=== PATIENT | female | born 1985 | race Caucasian/White ===

== ENCOUNTER 2020-05-10 17:43 | Outpatient (REF) | payer OTHER, SELFPAY | END 2020-05-10 17:44 | disposition home or self-care (01) | LOC: HO.LAB 17:43 | PROVIDERS: Visit Provider Internal Medicine | DX: Z20.828 Contact with and (suspected) exposure to other viral communicable diseases (principal) | CPT/HCPCS: U0003 ==

== ENCOUNTER 2021-02-08 09:46 | Outpatient (REF) | payer OTHER, SELFPAY ==
[2021-02-09 10:13] LABS: BV Int Neg Control Negative (Negative); BV Int Pos Control Positive (Positive)
== END 2021-02-08 09:47 | disposition home or self-care (01) ==
LOC: HO.LAB 09:46
PROVIDERS: Visit Provider Advanced Practice Midwife
DX: Z01.419 Encounter for gynecological examination (general) (routine) without abnormal findings (principal); N89.8 Other specified noninflammatory disorders of vagina
CPT/HCPCS: 87480; 87510; 87660

== ENCOUNTER 2022-09-19 14:04 | Outpatient (REF) | payer OTHER, SELFPAY ==
[2022-09-20 05:55] LABS: CT PCR NOT DETECTED (Not Detect.); NG PCR NOT DETECTED (Not Detect.)
[2022-09-20 13:03] LABS: BV Int Neg Control Negative (Negative); BV Int Pos Control Positive (Positive)
[2022-10-05 04:44] LABS: HPV mRNA E6/E7 rflx Not Detected (Not Detected)
== END 2022-09-19 14:05 | disposition home or self-care (01) ==
LOC: HO.LNP 14:04
PROVIDERS: Visit Provider Advanced Practice Midwife
DX: Z01.419 Encounter for gynecological examination (general) (routine) without abnormal findings (principal); E28.2 Polycystic ovarian syndrome; Z20.2 Contact with and (suspected) exposure to infections with a predominantly sexual mode of transmission
CPT/HCPCS: 0353U; 87480; 87510; 87624; 87660; 88142

== ENCOUNTER 2023-09-26 09:00 | Outpatient (REF) | payer OTHER, SELFPAY ==
[2023-09-27 14:52] LABS: CT PCR NOT DETECTED (Not Detect.); NG PCR NOT DETECTED (Not Detect.)
[2023-09-28 12:18] LABS: BV Int Neg Control Negative (Negative); BV Int Pos Control Positive (Positive)
== END 2023-09-26 09:01 | disposition home or self-care (01) ==
LOC: HO.LNP 09:00
PROVIDERS: Visit Provider Advanced Practice Midwife
DX: Z20.2 Contact with and (suspected) exposure to infections with a predominantly sexual mode of transmission (principal)
CPT/HCPCS: 0353U; 87480; 87510; 87660

== ENCOUNTER 2023-09-26 09:00 | Outpatient (AMB) | payer OTHER, SELFPAY ==
--- NOTE | 2023-09-26 09:03 | MHC.OFFVIS ---
Intake Vital Signs 09/26/23 09:06 Height 5 ft 3 in Weight 214 lb BMI 37.9 BP 122/80 Intake Visit Reasons: [employer] annual exam Emergency Vehicle Dispatcher Required: No Information Interpreted: non-clinical & clinical Chemical Processor: Chemical Processor Present (Aidyn) Allergies Sulfa (Sulfonamide Antibiotics) Allergy (Unknown, Verified 09/26/23 09:06) itching, rash grapefruit Adverse Reaction (Intermediate, Verified 09/26/23 09:06) Rash Medication List - Last Reconciled 09/26/23 by Heidi Allred CNM cholecalciferol (vitamin D3) 75 mcg PO DAILY clotrimazole-betamethasone 1-0.05 % 1 appl topical BID 2 weeks drospirenone-ethinyl estradiol 3-0.03 mg 1 tab PO DAILY 84 days hydroxyzine HCl 25 mg PO TID loratadine (Allerclear) mg PO melatonin mg PO .qhs PRN triamcinolone acetonide 0.025% appl topical Is last menstrual period known: No Post menopausal: No HPI [employer] annual exam HPI Details Is here to control pills and have her annual exam. She has not having any drafter topographical concerns. countraryy to the intake portion she does not write down the day of her period but she does know that it was at the beginning of the month and she gets it every month at the right time in the pill pack. She has a new primary care provider that she sees to manage her medications and she saw nurse practitioner in that office which is a [facility] office who treated her scabies which who is all better now and now she has eczema that resulted from it and she was given a cream but the tubes are very very tiny so she may have to go back for more. She thinks she does not drink too much water and her skin is dry. She tries to well but she is extremely stressed out and she does emotional eating. She is stressed because relationship with her julio's daughter who is the mother of her grandchild who she loves very much but the daughter in-law comes over and hangs out and plays on her phone in to talk but does not bring the grandchild and she very much wants to be involved in the child's life and teaching him things he is now [id number] and this is a great stressed to her she does have a therapist that she is able to talk to about it. She sees her every other week and that she thinks is amount. She talked a lot about the stresses of this and kept returning to this topic during the visit. [facility] Medical History Cyst near [facility] Mentally challenged GERD (gastroesophageal reflux disease) PCOS (polycystic ovarian syndrome) Social History Alcohol intake: current Alcohol intake frequency: holidays/special occasions only Patient Tobacco Use Status: Never used Tobacco Sexual orientation: Straight/Heterosexual Gender identity: Female Female Reproductive History Menstrual Age of Menarche: 8 Duration of menses: 3-5 days control method: pills Total pregnancies: 0 Date of last pap smear: 09/20/22 (negative) History of abnormal pap smear: No Physical Exam Vital Signs: Last Vital Signs BP 122/80 09/26/23 09:06 BMI result Body Mass Index 37.9 Const Other: Obesity noted. Patient has patches consistent with eczema all over. General: healthy appearing, comfortable, no acute distress, well developed and alert Nutritional Appearance: average body habitus Orientation/consciousness: patient oriented x3 Limitations: no limitations HEENT Head: Yes normocephalic Neck Neck: Yes normal visual inspection Chest Chest palpation & inspection: normal inspection of the chest Breast/axilla inspection: normal inspection of the breasts and normal inspection of the axillae Breast/axilla palpation: normal palpation of the breasts and normal palpation of the axillae Resp Effort & Inspection: normal respiratory effort GI Inspection: Yes normal to inspection, No Abdominal wall edema and No distended Palpation (GI): Soft to palpation and nontender Other: Normal drafter topographical exam vagina pink and moist cervix nulliparous pink moist smooth nontender uterus anteverted nontender good tone Kegel General: Yes bladder normal to palpation External Female Exam: normal external appearance and normal appearance of the urethra Speculum Exam - Vagina: normal appearance of the vagina, normal palpation and normal vaginal discharge Speculum Exam - Cervix: normal appearance of the cervix, normal palpation and nontender Bimanual exam- vagina & uterus: normal bimanual exam, normal palpation, uterine size normal, bladder normal to palpation, consistency normal, normal palpation, uterine mobility normal, uterine shape normal, No Cervical tenderness present, non-tender and no cervical motion tenderness Bimanual Exam- Adnexa, other: normal adnexae, no masses, normal and No adnexal tenderness Neuro General: patient oriented x3 Assessment & Plan Assessment & Plan (1) PCOS (polycystic ovarian syndrome): Code(s): E28.2 - Polycystic ovarian syndrome (2) Cervical cancer screening: Comment: 09/19/2022 Pap is negative with coxa bacilli but no HPV was done. Not sure why it got omitted I am ordering it.--HPV is negative. Code(s): Z12.4 - Encounter for screening for malignant neoplasm of cervix (3) Surveillance for control, oral contraceptives: Code(s): Z30.41 - Encounter for surveillance of contraceptive pills (4) Encounter for annual routine gynecological examination: Code(s): Z01.419 - Encounter for gynecological examination (general) (routine) without abnormal findings (5) Atopic eczema: Code(s): L20.9 - Atopic dermatitis, unspecified Plan -----Discussed in this visit the following: healthy balanced diet, regular and consistent exercise, getting recommended health screens, doing the best she can for her particular health concerns, kegel exercises, pap smear screening and followup recommendations, mammography screening and SBE, normal changes in cycles in her life stage--- .----I reviewed available options for Control Methods and their associated side effect profiles. In particular, we discussed the method most of interest to her. I reviewed dry skin care in detail including my recommendations for trying to not take showers that are too hot, and to apply a skin cream such as Eucerin, or equivalent, immediately after briefly towel, drying after coming out of the shower to seal in the moisture. I recommend that if she feels her skin start to tingle and dry up before she has had a chance to thoroughly apply the cream all over, she should jump back in the shower to re wet her skin, and start the process over again. The goal is to help seal in the moisture on her skin raimundo, by using the Eucerin as a protectant. I recommend not to skip this procedure for even 1 shower cycle during the dry winter season. ---most of the visit was spent listening to her many concerns about the stress of behavior of her grandson's mother towards her and all that this brings up for her. She says sometimes it makes her so depressed she has not sure what she will do. She did assure me that she has not feeling that way now but she is going to continue talking to her therapist about this and I encouraged her to find ways to make herself feel good she does not show a going out for walks outside and I encouraged this as well. Her Pap smear will be due in 4 years and I renewed her control pills for another year and we will see her next year and I am ordering her mammogram. Orders: Orders MM tomosynthesis screening BI Today Z01.419 - Encounter for gynecological examination (general) (routine) without abnormal findings, Z12.31 - Encounter for screening mammogram for malignant neoplasm of breast Bacterial Vaginosis Panel Today Z11.3 - Encounter for screening for infections with a predominantly sexual mode of transmission CT NG by PCR Today Z11.3 - Encounter for screening for infections with a predominantly sexual mode of transmission Medications: Refilled drospirenone-ethinyl estradiol 3-0.03 mg 1 tab PO DAILY 84 days 84 tabs 3RF Coding Level of Care Code Est Pt Prev Care 40-64y(14549) Diagnoses PCOS (polycystic ovarian syndrome) E28.2 Cervical cancer screening Z12.4 Surveillance for control, oral contraceptives Z30.41 Encounter for annual routine gynecological examination Z01.419 Atopic eczema L20.9
[2023-09-26 09:06] VITALS: BP 122/80; BMI 37.9
== END 2023-09-26 09:52 | disposition home or self-care (01) ==
LOC: HO.HWSM 09:00
PROVIDERS: Visit Provider Advanced Practice Midwife
DX: Z01.419 Encounter for gynecological examination (general) (routine) without abnormal findings (principal); E28.2 Polycystic ovarian syndrome; Z12.4 Encounter for screening for malignant neoplasm of cervix; Z30.41 Encounter for surveillance of contraceptive pills; L20.9 Atopic dermatitis, unspecified
CPT/HCPCS: 99396

== ENCOUNTER 2023-10-24 11:26 | Outpatient (REF) | payer OTHER, SELFPAY ==
--- NOTE | ~2023-10-24 | MM_ITS ---
EXAMINATION: MM SCREENING DIGITAL BREAST TOMOSYNTHESIS, BILATERAL CLINICAL INFORMATION: Screening. Asymptomatic. COMPARISON: Mammography: This is a baseline study. TECHNIQUE: Digital breast tomosynthesis is performed in both the craniocaudal and mediolateral oblique views along with computer-aided detection (CAD). Synthesized 2D images are generated from the tomosynthesis. FINDINGS: There are scattered areas of fibroglandular density (ACR BI-RADS breast composition Category b). There are no significant masses, abnormal calcifications, or other abnormalities. MM/MM tomosynthesis screening BI IMPRESSION: No mammographic evidence of malignancy. ASSESSMENT: BI-RADS BI-RADS 1 - Negative RECOMMENDATION: Routine annual mammography screening. 1 year F/U This examination should not preclude the clinical evaluation of a suspicious palpable abnormality. This patient's information was entered into a reminder system with a target due date for their next mammogram.
== END 2023-10-24 11:27 | disposition home or self-care (01) ==
LOC: HO.MAMMO 11:26
PROVIDERS: PCP Nurse Practitioner Family; Visit Provider Advanced Practice Midwife
DX: Z12.31 Encounter for screening mammogram for malignant neoplasm of breast (principal)
CPT/HCPCS: 77063; 77067

== ENCOUNTER → 2023-10-24 11:45 | Outpatient (BNV) | payer OTHER, SELFPAY | PROVIDERS: PCP Nurse Practitioner Family; Visit Provider Radiology Diagnostic Radiology | DX: Z12.31 Encounter for screening mammogram for malignant neoplasm of breast (principal) | CPT/HCPCS: 77063; 77067 ==

== ENCOUNTER 2024-12-24 09:57 | Outpatient (REF) | payer OTHER, SELFPAY ==
--- OUTSIDE RECORDS SUMMARY | 2024-12-19 23:59 | XMS_ITS | Continuity of Care Document ---
Author Organization [facility] Address [address] [place] [address]- Care Team Providers Care Brickmason Helper Name Role Phone Isai VMWARE CONSULTANT, Deanna Bhakta Primary Care Physician [place] [facility] [place] [facility] [address] [place] [address]- Encounter Type: Triage Allergies, Adverse Reactions, Alerts Substance Criticality Severity Reaction Reaction Severity Status sulfa drugs Active Other Food Allergy 1 Active 1GRAPEFRUIT Immunizations Given and Recorded Vaccine Date Status Refusal Reason influenza virus vaccine, inactivated 04/09/24 Give n influenza virus vaccine, inactivated 04/04/23 Give n influenza virus vaccine, inactivated 05/22/22 Harish rded influenza virus vaccine, inactivated 03/16/21 Harish rded influenza virus vaccine, inactivated 04/24/20 Harish rded influenza virus vaccine, inactivated 03/13/19 Harish rded influenza virus vaccine, inactivated 05/15/17 Harish rded SARS-CoV-2 (COVID-19) mRNA-1273 vaccine 07/11/21 R ecorded SARS-CoV-2 (COVID-19) mRNA-1273 vaccine 08/19/20 R ecorded Medications Centrum Women's oral tablet 1 tablet, By Mouth, Daily, # 30 tablet, 0 Refills, Maintenance, 01/03/23 3:38:00 PM EDT, [facility], Partial fill upon patient request if the prescription is for a schedule II opioid drug.,1 tablet By Mouth Daily,x30 days, 159, cm, 01/03/23 14:57:00 EDT, Height Start Date: 01/03/23 Stop Date: 02/02/23 Status: Ordered Quantity: 30.0 Unit: tablet Repeat number: 1 Indications: Persons encountering health services in other specified circumstances; drospirenone-ethinyl estradiol 3 mg-0.03 mg oral tablet 1 tablet, By Mouth, Daily, # 28 tablet, 0 Refills, Maintenance, 01/03/23 3:08:00 PM EDT, Tablet, Partial fill upon patient request if the prescription is for a schedule II opioid drug. Start Date: 01/03/23 Status: Ordered Quantity: 28.0 Unit: tablet Repeat number: 1 EPINEPHrine 0.3 mg injectable solution 0 Refills, Maintenance, 04/09/24 9:49:00 AM EDT, Partial fill upon patient request if the prescription is for a schedule II opioid drug. Start Date: 04/09/24 Status: Ordered Repeat number: 1 Freestyle Lite Lancets See Instructions, # 100 each, Refills 11, Tot. Refills 11, Maintenance, Monitor blood sugars 3 times a day for E11.9 Type 2 diabetes mellitus, 04/30/24 10:06:00 AM EST, Supply, 159, cm, 04/30/24 9:33:00 EST, Height Start Date: 04/30/24 Stop Date: 04/25/25 Status: Ordered Quantity: 100.0 Unit: each Repeat number: 12 Indications: Type 2 diabetes mellitus without complications; Freestyle Lite Monitor See Instructions, # 1 each, Maintenance, Monitor blood sugars 3 times a day for E11.9 Type 2 diabetes mellitus, 04/30/24 10:06:00 AM EST, Supply, 159, cm, 04/30/24 9:33:00 EST, Height Start Date: 04/30/24 Status: Ordered Quantity: 1.0 Unit: each Repeat number: 1 Indications: Type 2 diabetes mellitus without complications; Freestyle Lite Test Strips See Instructions, # 100 each, Refills 11, Tot. Refills 11, Maintenance, Monitor blood sugars 3 times a day for E11.9 Type 2 diabetes mellitus, 04/30/24 10:06:00 AM EST, Supply, 159, cm, 04/30/24 9:33:00 EST, Height Start Date: 04/30/24 Status: Ordered Quantity: 100.0 Unit: each Repeat number: 12 Indications: Type 2 diabetes mellitus without complications; hydrOXYzine hydrochloride 25 mg oral tablet 1 tablet, By Mouth, 3 times a day, PRN NEEDED, VIAL., # 30 tablet, 5 Refills, Maintenance, 10/21/24 4:10:00 PM EDT, [facility], 159, cm, 09/30/24 10:33:00 EDT, Height Start Date: 10/21/24 Status: Ordered Quantity: 30.0 Unit: tablet Repeat number: 1 KLS ALLERCLEAR ORAL TABLET 10MG KLS ALLERCLEAR ORAL TABLET 10MG, 1, tablet, By Mouth, Daily, # 30 tablet, Refills 5, Tot. Refills 5, Maintenance, 08/21/24 4:23:00 PM EDT, Supply, 159, cm, 04/30/24 9:33:00 EST, Height Start Date: 08/21/24 Status: Ordered Quantity: 30.0 Unit: tablet Repeat number: 6 Melatonin 3 mg oral tablet 1 tablet, By Mouth, Daily at bedtime, PRN NEEDED FOR INSOMNIA (VIAL), # 30 tablet, 2 Refills, Maintenance, 12/10/24 1:04:00 PM EDT, [facility], 30, TAKE ONE TABLET BY MOUTH EVERY EVENING AT BEDTIME NEEDED FOR INSOMNIA (VIAL), 159, cm, 09/30/24 10:33:00 EDT, Height Start Date: 12/10/24 Status: Ordered Quantity: 30.0 Unit: tablet Repeat number: 1 mometasone 0.1% topical cream 1 application, Topically, 2 times a day, Apply to affected skin, # 45 Gm, 0 Refills, Maintenance, 04/09/24 9:49:00 AM EDT, Cream, Partial fill upon patient request if the prescription is for a schedule II opioid drug. Start Date: 04/09/24 Stop Date: 04/23/24 Status: Ordered Quantity: 45.0 Unit: g Repeat number: 1 sertraline 50 mg oral tablet 1 tablet = 50 mg, By Mouth, Daily, # 90 tablet, 1 Refills, Maintenance, 08/28/24 8:31:00 AM EDT, Tablet, [facility], Partial fill upon patient request if the prescription is for a schedule II opioid drug., 159, cm, 04/30/24 9:33:00 EST, Height Start Date: 08/28/24 Status: Ordered Quantity: 90.0 Unit: tablet Repeat number: 2 Indications: Major depressive disorder, single episode, severe without psychotic features; Vitamin D3 1000 intl units oral tablet 1 tablet = 25 mcg, By Mouth, Daily, # 90 tablet, 2 Refills, Maintenance, 11/20/24 2:19:00 PM EDT, Tablet, [facility], Partial fill upon patient request if the prescription is for a schedule IIopioid drug., 159, cm, 09/30/24 10:33:00 EDT, Height Start Date: 11/20/24 Status: Ordered Quantity: 90.0 Unit: tablet Repeat number: 3 Problem List Condition Confirmation Course Effective Dates Status Health St atus Informant Eczema Confirmed Active Moderately severe major depression Confirmed Active Screening for diabetes mellitus Confirmed Active Screening cholesterol level Confirmed Active Thyroid disorder screening Confirmed Active Severe obesity (BMI 35.0-39.9) with comorbidity Confirmed Active Encounter for general adult medical examination without abnormal findings Confirmed Active Social History Social History Type Response Smoking Status Never (less than 100 in lifetime) entered on: 01/03/23 Sex Sex Representation Female (finding) Patient Care team information Care Team Personnel Name: Isai MUNIZ, Deanna Bhakta Position: [facility] Associate Professional Member Role: PCP Address: [address] [place] [address] Telecom: Care Team Related Persons Name: BISMARK DAMON Name: JEAN MCGEE Insurance Providers Guarantor name: ABDON Health Plan Information #: 1 Payer: [facility] Payer Identifier: ABDON Member Number: [id number] Group Number: [id number] Subscriber Identifier: [id number] Relationship to Subscriber: self Coverage Type: Medicare Managed Care (Includes Medicare Advantage Plans) Coverage Verification Date: ABDON Telecom: ABDON Address:
== END 2024-12-24 09:58 | disposition home or self-care (01) ==
LOC: HO.MAMMO 09:57
PROVIDERS: PCP Nurse Practitioner Family; Visit Provider Nurse Practitioner Family
DX: Z12.31 Encounter for screening mammogram for malignant neoplasm of breast (principal)
CPT/HCPCS: 77063; 77067

== ENCOUNTER → 2024-12-24 10:15 | Outpatient (BNV) | payer OTHER, SELFPAY | PROVIDERS: PCP Nurse Practitioner Family; Visit Provider Radiology Body Imaging | DX: Z12.31 Encounter for screening mammogram for malignant neoplasm of breast (principal) | CPT/HCPCS: 77063; 77067 ==